=== PATIENT | male | born 1995 | race Caucasian/White ===

== ENCOUNTER 2020-07-12 19:15 | Emergency (ER) | payer SELFPAY ==
[~2020-07-12] VITALS: Ht 170.2 cm; Wt 64.7 kg
[2020-07-12 19:17] VITALS: BP 149/91
[2020-07-12] MEDS ORDERED: KETOROLAC 30 MG/1 ML IM ONE (20:30)
[2020-07-12] MEDS ORDERED: KETOROLAC 60 MG/2 ML ONE (20:35)
--- NOTE | 2020-07-12 20:39 | NUR ---
Medicated per order. Splint being applied by EMT.
== END 2020-07-12 21:19 ==
LOC: ED 19:30
DX: S93.402A Sprain of unspecified ligament of left ankle, initial encounter (principal); X58.XXXA Exposure to other specified factors, initial encounter; Y93.89 Activity, other specified; Y92.89 Other specified places as the place of occurrence of the external cause; Y99.8 Other external cause status
CPT/HCPCS: 29515; 73610; 73630; 96372; 99284; J1885